=== PATIENT | male | born 1930 | race Caucasian/White ===

== ENCOUNTER → 2020-08-05 10:13 | Outpatient (CLI) | payer MEDICARE, BC ==
--- NOTE | ~2020-08-05 | EC ---
PATIENT:DEQUAN WILSON DATE OF SERVICE: 08/05/20 SEX: M MEDICAL RECORD: [id number] DATE OF : [birth year] LOCATION:D[facility] AGE OF PATIENT: 89 ADMISSION DATE: 08/05/20 REFERRING PHYSICIAN: INTERPRETING PHYSICIAN: KRISTEN BAUTISTA MD ECHOCARDIOGRAM REPORT ECHO CHARGES 4 ECHO COMPLETE Date: 08/05/20 CLINICAL DIAGNOSIS: CAD/HEART MURMUR/ DYPSNEA ON EXERTION HX OF CABG ECHOCARDIOGRAPHIC MEASUREMENTS (adult normal given) AC root (d.<3.7cm) 3.7 cm LV Septum d (<1.2 cm> 1.6 cm Valve Excursion 1.3 cm LV Septum (systole) 1.8 cm Left Atria (s.<4.0cm> 4.6 cm LVPW d(<1.2cm) 1.8 cm RV (d.<2.3cm) 4.0 cm LVPW (sytole) 2.0 cm LV diastole(<5.6CM) 4.7 cm MV E-F(>70mm/sec) cm LV systole 3.1 cm LVOT Diameter 1.9 cm MV exc.(>10mm) 1.2 cm Est.ejection fraction (50-75%) % DOPPLER: LVIT cm/sec A 79.0 cm/sec E 93.0 cm/sec LA cm/sec RVSP 45 mmHg LVOT 136 cm/sec AOP1/2T m/s Asc. Ao 260 cm/sec RVOT 59 cm/sec RA cm/sec PA cm/sec AV Gradient Peak 26.96mmHg AV Mean 15.68mmHg AV Area 1.5 cm MV Gradient Peak 4.25 mmHg MV Mean 1.53 mmHg MV Area cm COMMENTS: Digital Sales Planner: 2 SHARLENE ADLER Account Developer: 3 Dr. Srivastava TAPE# PACS Pericardial Effusion N DATE OF SERVICE: Adequate 2D, color-flow imaging, spectral Doppler, and M-Mode. FINDINGS: LVH is present. LV internal dimensions are normal. Wall motion is normal. EF is greater than or equal to 55%. Aortic valve is calcified without restriction of leaflet motion. Peak gradient of 26 mmHg putting this in a moderate range. Left atrium is dilated 4.6 cm. Mitral valve shows no prolapse. Mild MR. Right side is grossly normal. Mild TR. TRANSINT:[id number] Voice Confirmation ID: [id number] DOCUMENT ID: [id number] ECHOCARDIOGRAM REPORT [id number] DEQUAN WILSON GREGORY A MD CC: [id number] DICTATION DATE: 08/05/20 164 PAYER SPECIALIST: 08/06/20 0017 DEP CLI 08/05/20 [place] [id number] [place] [id number]
== END | disposition home or self-care (01) ==
LOC: D.ECHO 10:13
PROVIDERS: ATTEND Internal Medicine Interventional Cardiology
DX: I25.10 Atherosclerotic heart disease of native coronary artery without angina pectoris (principal)